=== PATIENT | male | born 1950 | race Caucasian/White ===

== ENCOUNTER 2019-01-14 14:22 | Emergency (ER) | payer OTHER ==
--- NOTE | 2019-01-14 14:50 | RAD REPORT ---
EXAM DESCRIPTION: CT - Ct Stroke Brain Wo Cont - 01/14/2019 2:41 pm CLINICAL HISTORY: Left-sided facial droop CLINICAL HISTORY: None. TECHNIQUE: Axial 5 millimeter thick images of the head were obtained without IV contrast. All CT scans are performed using dose optimization technique as appropriate and may include automated exposure control or mA/KV adjustment according to patient size. FINDINGS: No intracranial hemorrhage, mass, or cerebral edema. No acute infarction identifiable. No extra-axial fluid collections. Grover matter-white matter differentiation is preserved. Ventricles are normal. No globe or orbital content abnormality seen. Visualized portions of the mastoid air cells, paranasal sinuses, and orbits are unremarkable. Findings telephoned to the referring clinician 1446 hours. IMPRESSION: No CT evidence of acute intracranial process.
[2019-01-14 14:53] LABS: Absolute Lymphocytes (CBC) 1.8 K/uL (0.7-4.9); Basophils % 0.4 % (0-1.3); Hematocrit 41.4 % (39.6-49.0); Lymphocytes % 25.7 % (15.3-44.8); MPV 8.6 fL (7.6-11.3); Monocytes % 9.7 % (3.3-12.3); RBC Red Blood Cell Count 4.56 M/uL (4.33-5.43)
[2019-01-14 15:11] LABS: BUN Blood Urea Nitrogen 11 mg/dL (7-18); Bicarbonate 30 mmol/L (21-32); Glucose Level 92 mg/dL (74-106); Magnesium 2.3 mg/dL (1.8-2.4); Potassium 4.2 mmol/L (3.5-5.1); Sodium Level 142 mmol/L (136-145); Troponin (Emerg Dept Use Only) < 0.02 ng/mL (0.0-0.045)
--- NOTE | 2019-01-14 15:24 | RAD REPORT ---
EXAM DESCRIPTION: RAD - Chest Single View - 01/14/2019 2:57 pm CLINICAL HISTORY: cva Chest pain. COMPARISON: <Comparisons> FINDINGS: Portable technique limits examination quality. The lungs are grossly clear. The heart is normal in size. No displaced fractures. IMPRESSION: No acute intrathoracic process suspected.
[2019-01-14 15:26] LABS: Protime INR 0.95
[2019-01-14] MEDS ORDERED: ALTEPLASE 0 ML IV ONE (15:30)
[2019-01-14] MEDS ORDERED: ALTEPLASE 100 ML IV ONE (15:37)
[2019-01-14] MEDS ORDERED: NA CHLORIDE 0.9% 250 ML ONE (15:47)
--- NOTE | 2019-01-14 16:01 | ER ---
Nurse's Notes [facility] Name: Michael Bolivar Age: 68 yrs Sex: Male : 1950 Arrival Date: 01/14/2019 Time: 14:25 Bed 7 Private MD: Diagnosis: Cerebral infarction Presentation: 01/14 14:25 Presenting complaint: EMS states: pt was at work when his coworkers reported that his sg face was drooping on the left side, EMS report that the facial droop is only present when the face is relaxed, a symmetrical smile is reported and no other deficits reported upon assessment. Transition of care: patient was not received from another setting of care. Onset of symptoms was January 14, 2019. Risk Assessment: Do you want to hurt yourself or someone else? Patient reports no desire to harm self or others. Initial Sepsis Screen: Does the patient meet any 2 criteria? No. Patient's initial sepsis screen is negative. Does the patient have a suspected source of infection? No. Patient's initial sepsis screen is negative. Care prior to arrival: None. 14:25 Method Of Arrival: EMS: [email or web address] 14:25 Acuity: ANN 3 sg 14:30 An acute neurological deficit is present. Pre-hospital glucose is not applicable to sg this patient. Note no FSBG was performed by EMS. Stroke Activation: Symptom onset < 3 hours Physician: Stroke Attending; Name: ; Notified At: ; Arrived At: Physician: Chief Stroke Resident; Name: ; Notified At: ; Arrived At: Physician: Stroke Resident; Name: ; Notified At: ; Arrived At: Physician: ED Attending; Name: ; Notified At: ; Arrived At: Physician: ED Resident; Name: ; Notified At: ; Arrived At: Historical: - Allergies: 14:33 PENICILLINS; sg - PMHx: 14:33 High Cholesterol; sg - PSHx: 14:33 None; sg - Ebola Screening: : No symptoms or risks identified at this time. Screenin:25 Abuse screen: Denies threats or abuse. Denies injuries from another. Nutritional sv screening: No deficits noted. Tuberculosis screening: No symptoms or risk factors identified. Fall Risk None identified. 14:30 The patient has not been NPO before screening. The patient is alert, able to follow sg commands. The patient does not exhibit slurred or garbled speech The patient is not exhibiting difficulty speaking. The patient does not exhibit difficulty understanding words. The patient is able to swallow own secretions with no drooling or need for suction. Patient tolerated one teaspoon of water. No drooling, immediate coughing, gurgling, or clearing of the throat was noted. The patient tolerated 90mL of water. No drooling, immediate coughing, gurgling, or clearing of the throat was noted. The patient passed the bedside swallow screening. Oral medications may be given as ordered. Contact Physician for further diet orders. Assessment: 14:30 General: Appears in no apparent distress. well groomed, well developed, well nourished, sg Behavior is calm, cooperative, appropriate for age. Pain: Denies pain. Neuro: Level of Consciousness is awake, alert, obeys commands, Oriented to person, place, time, situation, Senior Accountant Analyst are equal bilaterally Moves all extremities. Full function Gait is steady, Speech is normal, Facial droop on left, Pupils are PERRLA, Reports numbness in entire left side of face. Cardiovascular: Capillary refill is brisk in bilateral fingers Patient's skin is warm and dry. Chest pain is denied. Respiratory: Airway is patent Respiratory effort is even, unlabored, Respiratory pattern is regular, symmetrical, Denies cough, shortness of breath labored breathing, pain with respiration, pain with cough, pain with movement, air hunger. GI: Abdomen is round non-distended, Bowel sounds present X 4 quads. Reports normal bowel habits, tolerance of fluids, tolerance of food. : No signs and/or symptoms were reported regarding the genitourinary system. EENT: No signs and/or symptoms were reported regarding the EENT system. Derm: Skin is pink, warm \T\ dry. Musculoskeletal: Circulation, motion, and sensation intact. Range of motion: intact in all extremities, Swelling absent. 14:30 VAN Scoring: Arm Drift: Patients demonstrates NO arm weakness. Patient is VAN Negative. sg The patient has not been NPO before screening. The patient is alert, and able to follow commands. The patient does not exhibit slurred or garbled speech. The patient is not exhibiting difficulty speaking. The patient does not exhibit difficulty understanding words. The patient is able to swallow own secretions with no drooling or need for suction. Patient tolerated one teaspoon of water. No drooling, immediate coughing, gurgling, or clearing of the throat was noted. The patient tolerated 90mL of water. No drooling, immediate coughing, gurgling, or clearing of the throat was noted. The patient passed the bedside swallow screening. Oral medications may be given as ordered. Contact Physician for further diet orders. Provider notified of bedside swallow screening results: Michael HIGGINBOTHAM. T-PA (Activase) Screening: Indications: Definite evidence of stroke, ischemic, embolic, or hypertensive: Yes. Treatment will start within 4.5 hours onset of symptoms: Yes. 14:35 Reassessment: pt to CT with Latoya MORALES, pt remains in stable condition at this time. sg 15:00 Reassessment: Patient appears in no apparent distress at this time. Patient and/or sg family updated on plan of care and expected duration. Pain level reassessed. Patient is alert, oriented x 3, equal unlabored respirations, skin warm/dry/pink. pt reports numbness sensation remains in the face at this time Patient states symptoms have not improved. 15:30 T-PA (Activase) Screening: Indications: No evidence of intracranial hemorrhage or CT of sg head and no evidence of peripheral hemorrhage or recent CVA: Yes. Consent for thrombolytic therapy: Yes. 15:35 Reassessment: Patient appears in no apparent distress at this time. Patient and/or sg family updated on plan of care and expected duration. Pain level reassessed. Patient is alert, oriented x 3, equal unlabored respirations, skin warm/dry/pink. TPA administration infusing at this time. Neuro: Level of Consciousness is awake, alert, obeys commands, Speech is normal, Facial droop on left. 15:35 Reassessment: the TPA VS/Neuro Flowsheet has been started per protocol, see paper sg charting. 15:50 Reassessment: Patient appears in no apparent distress at this time. Patient and/or sg family updated on plan of care and expected duration. Pain level reassessed. Patient is alert, oriented x 3, equal unlabored respirations, skin warm/dry/pink. Patient states symptoms have not improved. Neuro: Level of Consciousness is awake, alert, obeys commands, Oriented to person, place, time, situation, Speech is normal, Facial droop on left. 16:05 Reassessment: Patient appears in no apparent distress at this time. Patient is alert, sg oriented x 3, equal unlabored respirations, skin warm/dry/pink. Patient states symptoms have not improved. General: Behavior is calm, cooperative, appropriate for age, quiet. Neuro: Level of Consciousness is awake, alert, obeys commands, Oriented to person, place, time, situation, Senior Accountant Analyst are equal bilaterally Moves all extremities. Speech is normal, Facial droop on left, Pupils are PERRLA. Vital Signs: 14:25 Temp 98.6; sv 14:33 BP 142 / 94; Pulse 73; Resp 16; Temp 97.6; Pulse Ox 96% on R/A; sg 14:47 Weight 91.08 kg (M); sv 15:17 BP 130 / 87; Pulse 69; Resp 16; Pulse Ox 96% on R/A; mh5 15:35 BP 133 / 94; Pulse 82; Resp 16; Temp 97.6; Pulse Ox 100% on R/A; sg 15:50 BP 133 / 72; Pulse 79; Resp 16; Pulse Ox 100% on R/A; sg 16:05 BP 139 / 99; Pulse 82; Resp 16; Pulse Ox 100% on R/A; Pain 0/10; sg 16:20 BP 126 / 88; Pulse 72; Resp 16; Pulse Ox 97% on R/A; Pain 0/10; sg 16:35 BP 142 / 89; Pulse 75; Resp 14; Pulse Ox 100% on R/A; Pain 0/10; sg 16:50 BP 131 / 82; Pulse 75; Resp 16; Pulse Ox 100% on R/A; sg NIH Stroke Scale Scores: 14:30 NIHSS Score: 2 sg 14:30 NIHSS Score: 2 sg 15:44 NIHSS Score: 2 [facility] ED Course: 14:25 Patient arrived in ED. sg 14:25 Patient has correct armband on for positive identification. Placed in gown. Bed in low sv position. Call light in reach. Pulse ox on. NIBP on. Door closed. Head of bed elevated. 14:31 Triage completed. sg 14:32 Michael Kay PA is PHCP. jr8 14:32 Oswald Viramontes MD is Attending Physician. jr8 14:35 Levine, Amadeo, RN is Primary Nurse. sg 14:[address] via stretcher. sv 14:41 CT Stroke Brain w/o Contrast In Process Unspecified. EDMS 14:42 Initial lab(s) drawn, by me, sent to lab. Inserted saline lock: 18 gauge in right sv antecubital area, using aseptic technique. Blood collected. Flushed right antecubital with 5 ml normal saline. 14:47 Stroke CXR 1 View In Process Unspecified. EDMS 14:47 Arm band placed on. sv 14:47 EKG done, by biochemistry technician. reviewed by Michael HIGGINBOTHAM. dt2 14:48 Glucose, Ancillary Testing Sent. sv 15:17 Missed attempt(s): 20 gauge in left forearm. Bleeding controlled, band aid applied, hb catheter tip intact. 15:20 Inserted saline lock: 20 gauge in left antecubital area, using aseptic technique. hb 15:55 Initiated transfer with [facility] spoke with Marlyn at this time. ms 15:[address] doing Dr-Dr with [facility] at this time. ms Administered Medications: 15:35 Drug: Alteplase (Bolus for Stroke) - Activase 0.09 mg/kg {Co-Signature: selena (Latoya Leger RN).} Route: IV Thrombolytics; Infused Over: 1 mins; 16:00 Follow up: Response: No adverse reaction sg 15:35 Drug: Alteplase {Co-Signature: selena (Latoya Leger RN).} Route: IV Thrombolytics; Rate: sg calculated rate; 16:35 Follow up: Response: No adverse reaction Point of Care Testing: Blood Glucose: 14:42 Blood Glucose: 100 mg/dL; sv Ranges: Outcome: 16:00 ER care complete, transfer ordered by MD. garcia 16:25 Transferred by ground EMS to [facility], Transfer form completed. sg 16:25 Condition: stable 16:25 Instructed on the need for admit, safety practices, Demonstrated understanding of instructions, report called to CARMEN Sexton 17:11 Instructed on report given to Jocelyne Handle Finisher with [facility] sg 17:12 Patient left the ED. sg NIH Stroke Scale - NIH Stroke Score Date: 01/14/2019 Time: 14:30 Total Score = 2 1a. Level of Consciousness (LOC) - 0(Alert) 1b. Level of Consciousness (LOC) (Year \T\ Age) - 0(Both) 1c. LOC Commands (Open \T\ Closes Eyes/Forester Silviculture) - 0(Both) 2. Best Gaze (Lateral Gaze Paresis) - 0(Normal) 3. Visual Field Loss - 0(No visual loss) 4. Facial Palsy - 1(Minor Paralysis) 5a. Left Arm: Motor (10-second hold) - 0(No drift) 5b. Right Arm: Motor (10-second hold) - 0(No drift) 6a. Left Leg: Motor (5-second hold - always test supine) - 0(No drift) 6b. Right Leg: Motor (5-second hold - always test supine) - 0(No drift) 7. Limb Ataxia (finger/nose \T\ heel/coronado - test with eyes open) - 0(Absent) 8. Sensory Loss (pinprick arms/legs/face) - 1(Mild to moderate loss) 9. Best Language: Aphasia (description/naming/reading) - 0(No aphasia) 10. Dysarthria (speech clarity - read or repeat words) - 0(Normal) 11. Extinction and Inattention (visual/tactile/auditory/spatial/personal) - 0(No abnormality) Initials: NIH Stroke Scale - NIH Stroke Score Date: 01/14/2019 Time: 14:30 Total Score = 2 1a. Level of Consciousness (LOC) - 0(Alert) 1b. Level of Consciousness (LOC) (Year \T\ Age) - 0(Both) 1c. LOC Commands (Open \T\ Closes Eyes/Forester Silviculture) - 0(Both) 2. Best Gaze (Lateral Gaze Paresis) - 0(Normal) 3. Visual Field Loss - 0(No visual loss) 4. Facial Palsy - 1(Minor Paralysis) 5a. Left Arm: Motor (10-second hold) - 0(No drift) 5b. Right Arm: Motor (10-second hold) - 0(No drift) 6a. Left Leg: Motor (5-second hold - always test supine) - 0(No drift) 6b. Right Leg: Motor (5-second hold - always test supine) - 0(No drift) 7. Limb Ataxia (finger/nose \T\ heel/coron[place] - test with eyes open) - 0(Absent) 8. Sensory Loss (pinprick arms/legs/face) - 1(Mild to moderate loss) 9. Best Language: Aphasia (description/naming/reading) - 0(No aphasia) 10. Dysarthria (speech clarity - read or repeat words) - 0(Normal) 11. Extinction and Inattention (visual/tactile/auditory/spatial/personal) - 0(No abnormality) Initials: shelby NIH Stroke Scale - NIH Stroke Score Date: 01/14/2019 Time: 15:44 Total Score = 2 1a. Level of Consciousness (LOC) - 0(Alert) 1b. Level of Consciousness (LOC) (Year \T\ Age) - 0(Both) 1c. LOC Commands (Open \T\ Closes Eyes/Forester Silviculture) - 0(Both) 2. Best Gaze (Lateral Gaze Paresis) - 0(Normal) 3. Visual Field Loss - 0(No visual loss) 4. Facial Palsy - 1(Minor Paralysis) 5a. Left Arm: Motor (10-second hold) - 0(No drift) 5b. Right Arm: Motor (10-second hold) - 0(No drift) 6a. Left Leg: Motor (5-second hold - always test supine) - 0(No drift) 6b. Right Leg: Motor (5-second hold - always test supine) - 0(No drift) 7. Limb Ataxia (finger/nose \T\ heel/coronado - test with eyes open) - 0(Absent) 8. Sensory Loss (pinprick arms/legs/face) - 1(Mild to moderate loss) 9. Best Language: Aphasia (description/naming/reading) - 0(No aphasia) 10. Dysarthria (speech clarity - read or repeat words) - 0(Normal) 11. Extinction and Inattention (visual/tactile/auditory/spatial/personal) - 0(No abnormality) Initials: jr8 Signatures: Dispatcher [employer] Latoya Busby RN RN sv Gay, Steven, RN RN Monica Richards ms, Josh, PA PA jr8 Dayanara Kidd RN RN Monica Chapa Ailyn Kaye2 Latoya walters
--- NOTE | 2019-01-14 16:02 | EDPHYS ---
Physician Documentation [facility] Name: Michael Bolivar Age: 68 yrs Sex: Male : 1950 Arrival Date: 01/14/2019 Time: 14:25 Bed 7 Private MD: ED Physician Oswald Viramontes HPI: 01/14 15:44 This 68 yrs old Male presents to ER via EMS with complaints of Facial Droop. jr8 15:44 The patient presents to the emergency department with weakness of the left side of the jr8 face, that is mild. Onset: The symptoms/episode began/occurred acutely, today, at 13:00. Context: occurred at work, occurred while the patient was working. Associated signs and symptoms: The patient has no apparent associated signs or symptoms. Severity of symptoms: At their worst the symptoms were mild in the emergency department the symptoms are unchanged. Patient's baseline: Neuro: alert and fully oriented, Motor: left-sided facial droop, Ambulation: walks without assistance, Speech: normal. The patient has not experienced similar symptoms in the past. The patient has not recently seen a physician. Historical: - Allergies: 14:33 PENICILLINS; sg - PMHx: 14:33 High Cholesterol; sg - PSHx: 14:33 None; sg - Ebola Screening: : No symptoms or risks identified at this time. ROS: 15:44 Eyes: Negative for injury, pain, redness, and discharge, ENT: Negative for injury, jr8 pain, and discharge, Neck: Negative for injury, pain, and swelling, Cardiovascular: Negative for chest pain, palpitations, and edema, Respiratory: Negative for shortness of breath, cough, wheezing, and pleuritic chest pain, Abdomen/GI: Negative for abdominal pain, nausea, vomiting, diarrhea, and constipation, Back: Negative for injury and pain, MS/Extremity: Negative for injury and deformity, Skin: Negative for injury, rash, and discoloration. 15:44 Neuro: Positive for numbness, weakness. Exam: 15:44 Eyes: Pupils equal round and reactive to light, extra-ocular motions intact. Lids and jr8 lashes normal. Conjunctiva and sclera are non-icteric and not injected. Cornea within normal limits. Periorbital areas with no swelling, redness, or edema. ENT: Nares patent. No nasal discharge, no septal abnormalities noted. Tympanic membranes are normal and external auditory canals are clear. Oropharynx with no redness, swelling, or masses, exudates, or evidence of obstruction, uvula midline. Mucous membranes moist. Neck: Trachea midline, no thyromegaly or masses palpated, and no cervical lymphadenopathy. Supple, full range of motion without nuchal rigidity, or vertebral point tenderness. No Meningismus. Cardiovascular: Regular rate and rhythm with a normal S1 and S2. No gallops, murmurs, or rubs. Normal PMI, no JVD. No pulse deficits. Respiratory: Lungs have equal breath sounds bilaterally, clear to auscultation and percussion. No rales, rhonchi or wheezes noted. No increased work of breathing, no retractions or nasal flaring. Abdomen/GI: Soft, non-tender, with normal bowel sounds. No distension or tympany. No guarding or rebound. No evidence of tenderness throughout. Back: No spinal tenderness. No costovertebral tenderness. Full range of motion. Skin: Warm, dry with normal turgor. Normal color with no rashes, no lesions, and no evidence of cellulitis. MS/ Extremity: Pulses equal, no cyanosis. Neurovascular intact. Full, normal range of motion. 15:44 Neuro: Orientation: to person, place, time \T\ situation. Mentation: is normal, Memory: is normal, immediate memory is intact, recent memory is intact, remote memory is intact, Cranial nerves: CN I not tested, CN II- XII are normal as tested, visual menard are intact. extraocular movements are intact, facial droop noted on left, Speech is clear and appropriate. Tongue strength is normal, Cerebellar function: normal finger to nose testing, heel to coornado testing is normal, Motor: moves all fours, strength is 5/5 in all extremities, Sensation: numbness, that is mild, of the face, Gait: is steady, at a normal pace, without difficulty, seizure activity, is not displayed by the patient, Abnormal movements: there are no abnormal movements. Vital Signs: 14:25 Temp 98.6; sv 14:33 BP 142 / 94; Pulse 73; Resp 16; Temp 97.6; Pulse Ox 96% on R/A; sg 14:47 Weight 91.08 kg (M); sv 15:17 BP 130 / 87; Pulse 69; Resp 16; Pulse Ox 96% on R/A; mh5 15:35 BP 133 / 94; Pulse 82; Resp 16; Temp 97.6; Pulse Ox 100% on R/A; sg 15:50 BP 133 / 72; Pulse 79; Resp 16; Pulse Ox 100% on R/A; sg 16:05 BP 139 / 99; Pulse 82; Resp 16; Pulse Ox 100% on R/A; Pain 0/10; sg 16:20 BP 126 / 88; Pulse 72; Resp 16; Pulse Ox 97% on R/A; Pain 0/10; sg 16:35 BP 142 / 89; Pulse 75; Resp 14; Pulse Ox 100% on R/A; Pain 0/10; sg 16:50 BP 131 / 82; Pulse 75; Resp 16; Pulse Ox 100% on R/A; sg NIH Stroke Scale Scores: 14:30 NIHSS Score: 2 sg 14:30 NIHSS Score: 2 sg 15:44 NIHSS Score: 2 8 MDM: 14:32 Patient medically screened. jr8 15:12 Data reviewed: vital signs, nurses notes, EKG, radiologic studies, CT scan. Data jr8 interpreted: Pulse oximetry: on room air is 96 %. Interpretation: normal. Counseling: I had a detailed discussion with the patient and/or guardian regarding: the historical points, exam findings, and any diagnostic results supporting the discharge/admit diagnosis, lab results, radiology results, the need to transfer to another facility, [facility] does not immediately have the required specialist. ED course: Patient within three hour window. Symptom onset 1 pm. NIH 2 currently. Risks vs. Benefits of tPA given to patient. Patient wants tPA and is indicated. tPA ordered . 15:59 ED course: Dr. Ortiz accepted at [facility]. 01/14 14:33 Order name: Troponin (emerg Dept Use Only); Complete Time: 15:44 01/14 14:33 Order name: Magnesium; Complete Time: 15:44 01/14 14:33 Order name: Basic Metabolic Panel; Complete Time: 15:44 01/14 14:33 Order name: CBC with Diff; Complete Time: 15:09 01/14 14:33 Order name: Protime (+inr); Complete Time: 15:44 01/14 14:33 Order name: Ptt, Activated; Complete Time: 15:44 01/14 14:33 Order name: CT Stroke Brain w/o Contrast; Complete Time: 14:59 01/14 14:33 Order name: Stroke CXR 1 View; Complete Time: 15:44 01/14 14:33 Order name: EKG; Complete Time: 14:35 jr01/14 14:33 Order name: Accucheck; Complete Time: 14:48 jr01/14 14:33 Order name: Cardiac monitoring; Complete Time: 15:11 jr01/14 14:47 Order name: Glucose, Ancillary Testing; Complete Time: 14:59 EDMS 01/14 14:33 Order name: EKG - Nurse/Tech; Complete Time: 14:48 01/14 14:33 Order name: IV Saline Lock; Complete Time: 14:48 01/14 14:33 Order name: Labs collected and sent; Complete Time: 14:48 01/14 14:33 Order name: NPO; Complete Time: 14:48 01/14 14:33 Order name: O2 Per Protocol; Complete Time: 14:48 01/14 14:33 Order name: O2 Sat Monitoring; Complete Time: 14:48 01/14 14:33 Order name: Stroke Swallow Screen; Complete Time: 15:56 jr8 Administered Medications: 15:35 Drug: Alteplase (Bolus for Stroke) - Activase 0.09 mg/kg {Co-Signature: sv (Latoya Leger RN).} Route: IV Thrombolytics; Infused Over: 1 mins; 16:00 Follow up: Response: No adverse reaction sg 15:35 Drug: Alteplase {Co-Signature: sv (Latoya Leger RN).} Route: IV Thrombolytics; Rate: sg calculated rate; 16:35 Follow up: Response: No adverse reaction sg Point of Care Testing: Blood Glucose: 14:42 Blood Glucose: 100 mg/dL; sv Ranges: Critical Glucose Levels:Adult <50 mg/dl or >400 mg/dl <40 mg/dl or >180 mg/dl Disposition: 18:29 Co-signature as Attending Physician, Oswald Viramontes MD. rn Disposition: 01/14/19 16:00 Transfer ordered to [facility]. Diagnosis is Cerebral infarction. - Reason for transfer: Higher level of care. - Accepting physician is Dr. Ortiz. - Condition is Stable. - Problem is new. - Symptoms are unchanged. NIH Stroke Scale - NIH Stroke Score Date: 01/14/2019 Time: 14:30 Total Score = 2 1a. Level of Consciousness (LOC) - 0(Alert) 1b. Level of Consciousness (LOC) (Year \T\ Age) - 0(Both) 1c. LOC Commands (Open \T\ Closes Eyes/Grief Counsellor) - 0(Both) 2. Best Gaze (Lateral Gaze Paresis) - 0(Normal) 3. Visual Field Loss - 0(No visual loss) 4. Facial Palsy - 1(Minor Paralysis) 5a. Left Arm: Motor (10-second hold) - 0(No drift) 5b. Right Arm: Motor (10-second hold) - 0(No drift) 6a. Left Leg: Motor (5-second hold - always test supine) - 0(No drift) 6b. Right Leg: Motor (5-second hold - always test supine) - 0(No drift) 7. Limb Ataxia (finger/nose \T\ heel/coronado - test with eyes open) - 0(Absent) 8. Sensory Loss (pinprick arms/legs/face) - 1(Mild to moderate loss) 9. Best Language: Aphasia (description/naming/reading) - 0(No aphasia) 10. Dysarthria (speech clarity - read or repeat words) - 0(Normal) 11. Extinction and Inattention (visual/tactile/auditory/spatial/personal) - 0(No abnormality) Initials: NIH Stroke Scale - NIH Stroke Score Date: 01/14/2019 Time: 14:30 Total Score = 2 1a. Level of Consciousness (LOC) - 0(Alert) 1b. Level of Consciousness (LOC) (Year \T\ Age) - 0(Both) 1c. LOC Commands (Open \T\ Closes Eyes/Grief Counsellor) - 0(Both) 2. Best Gaze (Lateral Gaze Paresis) - 0(Normal) 3. Visual Field Loss - 0(No visual loss) 4. Facial Palsy - 1(Minor Paralysis) 5a. Left Arm: Motor (10-second hold) - 0(No drift) 5b. Right Arm: Motor (10-second hold) - 0(No drift) 6a. Left Leg: Motor (5-second hold - always test supine) - 0(No drift) 6b. Right Leg: Motor (5-second hold - always test supine) - 0(No drift) 7. Limb Ataxia (finger/nose \T\ heel/coronado - test with eyes open) - 0(Absent) 8. Sensory Loss (pinprick arms/legs/face) - 1(Mild to moderate loss) 9. Best Language: Aphasia (description/naming/reading) - 0(No aphasia) 10. Dysarthria (speech clarity - read or repeat words) - 0(Normal) 11. Extinction and Inattention (visual/tactile/auditory/spatial/personal) - 0(No abnormality) Initials: shelby NIH Stroke Scale - NIH Stroke Score Date: 01/14/2019 Time: 15:44 Total Score = 2 1a. Level of Consciousness (LOC) - 0(Alert) 1b. Level of Consciousness (LOC) (Year \T\ Age) - 0(Both) 1c. LOC Commands (Open \T\ Closes Eyes/Grief Counsellor) - 0(Both) 2. Best Gaze (Lateral Gaze Paresis) - 0(Normal) 3. Visual Field Loss - 0(No visual loss) 4. Facial Palsy - 1(Minor Paralysis) 5a. Left Arm: Motor (10-second hold) - 0(No drift) 5b. Right Arm: Motor (10-second hold) - 0(No drift) 6a. Left Leg: Motor (5-second hold - always test supine) - 0(No drift) 6b. Right Leg: Motor (5-second hold - always test supine) - 0(No drift) 7. Limb Ataxia (finger/nose \T\ heel/coronado - test with eyes open) - 0(Absent) 8. Sensory Loss (pinprick arms/legs/face) - 1(Mild to moderate loss) 9. Best Language: Aphasia (description/naming/reading) - 0(No aphasia) 10. Dysarthria (speech clarity - read or repeat words) - 0(Normal) 11. Extinction and Inattention (visual/tactile/auditory/spatial/personal) - 0(No abnormality) Initials: jr8 Signatures: Dispatcher [employer] Latoya Busby RN RN sv Gay, Steven, RN RN sg Nieto, Roman, MD MD rn Roszak, Michael, PA PA jr8 Latoya Leger RN sv Corrections: (The following items were deleted from the chart) 17:12 16:00 01/14/2019 16:00 Transfer ordered to [facility]. sg Diagnosis is Cerebral infarction. Reason for transfer: Higher level of care. Accepting physician is Dr. Ortiz. Condition is Stable. Problem is new. Symptoms are unchanged. jr8
--- NOTE | 2019-01-15 07:04 | EKG ---
Test Date: 2019-01-14 Test Time: 14:43:36 Passenger Vessel Chef: DARRELL/Gely MEASUREMENT RESULTS: Intervals: Rate: 69 TN: 136 QRSD: 90 QT: 396 QTc: 424 Polo: P: 50 TN: 136 QRS: -7 T: 17 INTERPRETIVE STATEMENTS: Normal sinus rhythm Normal ECG Compared to ECG 08/08/1998 18:55:00 Sinus bradycardia no longer present Electronically Signed On 01-15-19 07:02:21 CDT by Julio Do
== END 2019-01-14 17:12 | disposition short-term general hospital (02) ==
LOC: ER 14:22
DX: I63.9 Cerebral infarction, unspecified (principal); R29.702 NIHSS score 2; E78.00 Pure hypercholesterolemia, unspecified; Z88.0 Allergy status to penicillin
CPT/HCPCS: 36415; 70450; 71045; 80048; 82962; 83735; 84484; 85025; 85610; 85730; 92977; 93005; 99285; J2997